=== PATIENT | female | born 1935 | race Caucasian/White ===

== ENCOUNTER 2016-09-14 00:45 | Emergency (ER) | payer MEDICARE, BC ==
[2016-09-14 01:04] VITALS: BP 167/88
--- NOTE | 2016-09-14 03:15 | EDM.PDOC ---
ED HPI GENERAL MEDICAL PROBLEM - General Chief Complaint: Cardiovascular Problem Stated Complaint: HIGH BLOOD PRESSURE Time Seen by Provider: 09/14/16 01:18 Source of Information: Reports: Patient History Limitations: Reports: No Limitations - History of Present Illness INITIAL COMMENTS - FREE TEXT/NARRATIVE: This lady comes in because concerns about high blood pressure. She was seen ear nose throat doctor who sprayed something in her nose to open it up for exam. Her blood pressure was about a systolic of 190 then. She was told the medication really didn't have anything to do with it. Earlier today she had a little bit of squeezing discomfort in her chest lasted from about 11 PM to 11: 30 but quit when she sat up and began moving around. Her blood pressure normally is in the 140s or so. It's was high at home tonight 2. She's been very active for the last 2 weeks because her selling their house. She's quite anxious about this and she is very anxious about the elevated blood pressure. She's checked it at home a number of times. The more she checks at the higher it seems to go. Chest Pain Score (Numeric/FACES): 7 - Related Data Allergies Allergy/AdvReac Type Severity Reaction Status Date / Time codeine Allergy Cannot Verified 09/14/16 01:04 Remember Sulfa (Sulfonamide Allergy Cannot Verified 09/14/16 01:04 Antibiotics) Remember Home Meds: Home Meds Amoxicillin/Potassium Clav [Augmentin 500-125 Tablet] 1 tab PO TID 09/14/16 [ History] Krill/Om-3/DHA/EPA/Phospho/Ast [Krill Oil 1,000 mg Softgel] 1 tab PO DAILY 09/14 [History] Meloxicam [Mobic] 2 tab PO ASDIRECTED PRN 09/14/16 [History] Multivitamin [Multi-Vitamin Daily] 1 tab PO DAILY 09/14/16 [History] Vit A/Vit C/Vit E/Zinc/Copper [Preservision Areds Softgel] 1 tab PO DAILY [History] Past Medical History HEENT History: Reports: Cataract Cardiovascular History: Reports: Blood Clots/VTE/DVT, Hypertension 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 Musculoskeletal History: Reports: Arthritis Neurological History: Reports: Migraines Endocrine/Metabolic History: Reports: Obesity/BMI 30+ Hematologic History: Reports: Blood Transfusion(s) - Infectious Disease History Infectious Disease History: Reports: Measles, Mumps - Past Surgical History HEENT Surgical History: Reports: Cataract Surgery, Tonsillectomy GI Surgical History: Reports: Appendectomy, Cholecystectomy Female Surgical History: Reports: Section, Hysterectomy Musculoskeletal Surgical History: Reports: Knee Replacement, Other (See Below) Other Musculoskeletal Surgeries/Procedures:: spinal fusion Social & Family History - Tobacco Use Smoking Status *Q: Never Smoker Second Hand Smoke Exposure: No - Caffeine Use Caffeine Use: Reports: Coffee - Recreational Drug Use Recreational Drug Use: No ED ROS GENERAL - Review of Systems Review Of Systems: See Below Constitutional: Reports: No Symptoms HEENT: Reports: No Symptoms Respiratory: Reports: No Symptoms Cardiovascular: Reports: Other (Chests) Endocrine: Reports: No Symptoms GI/Abdominal: Reports: Abdominal Pain (Both she and her have had some abdominal complaints lately) : Reports: No Symptoms Musculoskeletal: Reports: No Symptoms Skin: Reports: No Symptoms Neurological: Reports: No Symptoms ED EXAM, GENERAL - Physical Exam Exam: See Below Exam Limited By: No Limitations General Appearance: Alert, WD/WN, Mild Distress (She seems just a little bit anxious) Eye Exam: Bilateral Eye: EOMI, Normal Inspection, PERRL Ears: Normal External Exam Nose: Normal Inspection Throat/Mouth: Normal Inspection Head: Atraumatic Neck: Normal Inspection Respiratory/Chest: No Respiratory Distress, Lungs Clear Cardiovascular: Normal Peripheral Pulses, Regular Rate, Rhythm, No Murmur GI/Abdominal: Normal Bowel Sounds Extremities: Normal Inspection Neurological: Alert, Oriented, CN II-XII Intact, No Motor/Sensory Deficits Psychiatric: Normal Affect, Normal Mood, Anxious Skin Exam: Warm, Dry Course - Vital Signs Last Recorded V/S: Last Vital Signs Temp 37.1 C 09/14/16 00:47 Pulse 72 09/14/16 01:03 Resp 16 09/14/16 01:03 BP 167/88 H 09/14/16 01:03 Pulse Ox 95 09/14/16 01:03 - Orders/Labs/Meds Orders: Active Orders 24 hr Category Date Time Status EKG Documentation Completion [RC] ASDIRECTED Care 09/14/16 01:33 Active EKG 12 Lead [EK] Urgent Ther 09/14/16 01:33 Ordered Labs: Laboratory Tests 09/14/16 09/14/16 Range/Units 01:44 01:44 WBC 12.1 H (4.5-11.0) K/uL RBC 4.49 (3.30-5.50) M/uL Hgb 12.9 (12.0-15.0) g/dL Hct 39.1 (36.0-48.0) % MCV 87 (80-98) fL MCH 29 (27-31) pg MCHC 33 (32-36) % Plt Count 281 (150-400) K/uL Neut % (Auto) 61 (36-66) % Lymph % (Auto) 21 L (24-44) % Woodward % (Auto) 13 H (2-6) % Eos % (Auto) 5 H (2-4) % Baso % (Auto) 1 (0-1) % Sodium 141 (140-148) mmol/L Potassium 4.1 (3.6-5.2) mmol/L Chloride 103 (100-108) mmol/L Carbon Dioxide 28 (21-32) mmol/L Anion Gap 10.4 (5.0-14.0) mmol/L BUN 21 H (7-18) mg/dL Creatinine 0.9 (0.6-1.0) mg/dL Est Cr Clr Drug Dosing 40.54 mL/min Estimated GFR (MDRD) > 60 (>60) Glucose 100 (74-106) mg/dL Calcium 8.3 L (8.5-10.1) mg/dL Total Bilirubin 0.3 (0.2-1.0) mg/dL AST 24 (15-37) U/L ALT 20 (12-78) U/L Alkaline Phosphatase 74 (46-116) U/L Troponin I < 0.017 (0.000-0.056) ng/mL Total Protein 6.3 L (6.4-8.2) g/dL Albumin 3.0 L (3.4-5.0) g/dL Globulin 3.3 (2.3-3.5) g/dL Albumin/Globulin Ratio 0.9 L (1.2-2.2) - Re-Assessments/Exams Free Text/Narrative Re-Assessment/Exam: 09/14/16 07:21 EKG showed a normal sinus rhythm no evidence of any ischemia. Labs were reviewed with the patient. I noted that blood pressure has been done with a regular adult cuff. I replaced this with a large adult cuff and her blood pressure was approximately 144/80. I explained to her that whenever her blood pressures checked it should be with a large adult cuff since a regular adult cuff will give an abnormally high reading. Departure - Departure Time of Disposition: 03:11 Disposition: Home, Self-Care 01 Condition: fair Clinical Impression: Uncontrolled hypertension Instructions: Hypertension Referrals: Elpidio Eubanks MD [Primary Care Provider] - Forms: ED Department Discharge Additional Instructions: Whenever your blood pressure is checked, be sure that a "large adult" bp cuff is used. A regular sized cuff will often give an elevated reading. Try to see your doctor on Friday for a recheck or return to the ER at any time. - My Orders Last 24 Hours: My Active Orders 09/14/16 01:33 EKG Documentation Completion [RC] ASDIRECTED EKG 12 Lead [EK] Urgent - Assessment/Plan Last 24 Hours: My Active Orders 09/14/16 01:33 EKG Documentation Completion [RC] ASDIRECTED EKG 12 Lead [EK] Urgent
== END 2016-09-14 03:23 | disposition home or self-care (01) ==
LOC: JP.ED 00:45
DX: I10 Essential (primary) hypertension (principal); E66.9 Obesity, unspecified; Z68.36 Body mass index [BMI] 36.0-36.9, adult; Z86.718 Personal history of other venous thrombosis and embolism; Z98.49 Cataract extraction status, unspecified eye; Z90.49 Acquired absence of other specified parts of digestive tract; Z90.710 Acquired absence of both cervix and uterus; Z96.659 Presence of unspecified artificial knee joint; Z98.1 Arthrodesis status; Z79.899 Other long term (current) drug therapy; Z88.2 Allergy status to sulfonamides; Z88.5 Allergy status to narcotic agent
CPT/HCPCS: 36415; 80053; 84484; 85025; 93005; 93010; 99282; 99284-25

== ENCOUNTER → 2016-11-01 | Day surgery (SDC) | payer MEDICARE, BC ==
[~2016-11-01] MED LIST: Lactated Ringers 1,000 ML IV SCH; Propofol 200 MG/20 ML SDV ONE; fentaNYL 100 MCG/2 ML SDV ONE
[2016-11-01 11:00] VITALS: BP 123/75
--- NOTE | 2016-11-01 16:03 | OR ---
DATE OF PROCEDURE: 11/01/2016 PREOPERATIVE DIAGNOSIS: History of peptic ulcer disease, abnormal CAT scan with thickened proximal duodenal and antral wall. POSTOPERATIVE DIAGNOSIS: Antral ulcers. PROCEDURE: Esophagogastroduodenoscopy with antral biopsies for CLOtest and sent for pathology to look for Helicobacter pylori, including biopsy of gastric ulcer. ANESTHESIA: IV anesthesia with monitored anesthesia care. INDICATION: This 80-year-old white female is referred for an upper endoscopy. She complains of epigastric pain. She was found to have a thickened antral and duodenal wall on CAT scan. I counseled her for upper endoscopy with possible biopsy including the risks and alternatives, and she gave her informed consent to proceed. DESCRIPTION OF PROCEDURE: The patient was placed in the left lateral decubitus position. IV anesthesia was administered by the Anesthesia Service. Time-out was held. The flexible video Olympus upper endoscope was passed through her mouth, down her esophagus, and into her stomach. The scope was easily passed through the pylorus, into the duodenum, reaching its third portion. The scope was slowly withdrawn examining the mucosa throughout. The duodenal mucosa appeared unremarkable. The scope was brought out to the pylorus. There was a small antral ulcer initially visualized and then a much larger penetrating ulcer was seen, again, in the antrum. The scope was retroflexed. The proximal stomach appeared unremarkable, except that there was some bile in the stomach. The scope was straightened. We obtained antral biopsies for CLOtest and sent for pathology to look for Helicobacter pylori, including biopsy of the gastric ulcers. The scope was brought up to the GE junction. This appeared unremarkable and then up through the unremarkable-appearing esophagus and was removed. She tolerated the procedure well. Gen Moctezuma MD /[id number] MTDD
== END ==
LOC: JP.SDS 07:05
PROVIDERS: ATTEND Surgery
DX: K29.50 Unspecified chronic gastritis without bleeding (principal); K21.9 Gastro-esophageal reflux disease without esophagitis; Z88.2 Allergy status to sulfonamides; Z88.8 Allergy status to other drugs, medicaments and biological substances; Z91.041 Radiographic dye allergy status; Z91.012 Allergy to eggs
CPT/HCPCS: 43239; 87081; J2704; J3010; J7120; 88305; 88342